=== PATIENT | female | born 1970 | race Caucasian/White ===

== ENCOUNTER 2018-03-25 18:05 | Emergency (ER) | payer OTHER ==
[~2018-03-25] VITALS: Ht 165.1 cm; Wt 111.1 kg
[~2018-03-25 18:05] MED LIST: ACET-8386 PO; ASPI81EC97 PO; METO25TA PO
[2018-03-25 18:08] VITALS: BP 132/84
--- NOTE | 2018-03-25 18:14 | NUR ---
PT TO BED 2 VIA WHEELCHAIR
--- NOTE | 2018-03-25 18:19 | NUR ---
Pt present to ed due to Rt ankle pain sp injury while walking her dog today. Pt states she twisted her ankle. Rt ankle is swollen. Per pt she feels numb on her rt foot; Hx of COPD, CHF. AAO x 4; + pedal pulse. No discoloration or open wound.Denies hitting her when she fell. Cold compress done; Safety measures instituted;Brakes applied; side rails up; Er Md notified.
[2018-03-25] MEDS ORDERED: KETOROLAC 60 MG/2 ML VIAL IM ONE (18:30)
[2018-03-25] MEDS ORDERED: MORPHINE SULFATE 4 MG/ML SYR IM ONE (18:30)
--- NOTE | 2018-03-25 18:37 | NUR ---
x ray at bedside.
--- NOTE | 2018-03-25 18:45 | NUR ---
XRAY AT BEDSIDE
[2018-03-25 19:34] VITALS: BP 142/58
--- NOTE | 2018-03-25 19:34 | NUR ---
Patient discharged with v/s stable. Written and verbal after care instructions given and explained. Patient alert, oriented and verbalized understanding of instructions. Ambulatory with steady gait. All questions addressed prior to discharge. ID band removed. Patient advised to follow up with PMD. Rx of VOLTAREN XR, TRAMADOL given. Patient educated on indication of medication including possible reaction and side effects. Opportunity to ask questions provided and answered.
== END 2018-03-25 19:34 | disposition home or self-care (01) ==
LOC: MED 18:05
DX: S82.831A Other fracture of upper and lower end of right fibula, initial encounter for closed fracture (principal); J44.9 Chronic obstructive pulmonary disease, unspecified; I11.0 Hypertensive heart disease with heart failure; I50.9 Heart failure, unspecified; F12.10 Cannabis abuse, uncomplicated; Z79.899 Other long term (current) drug therapy; Z79.1 Long term (current) use of non-steroidal anti-inflammatories (NSAID); X50.1XXA Overexertion from prolonged static or awkward postures, initial encounter; Y93.K1 Activity, walking an animal; Y92.488 Other paved roadways as the place of occurrence of the external cause; Y99.8 Other external cause status
CPT/HCPCS: 29515; 73610; 73630; 96372; 99284; J1885; J2270; Q0092

== ENCOUNTER 2020-05-05 12:20 | Emergency (ER) | payer SELFPAY ==
[~2020-05-05] VITALS: Ht 165.1 cm; Wt 118.8 kg
[2020-05-05 12:24] VITALS: BP 139/65
--- NOTE | 2020-05-05 12:30 | NUR ---
W/C ASSISTED TO BED 2
--- NOTE | 2020-05-05 12:35 | NUR ---
49 y/o female from home c/o sudden onset chest pain while at work. Pt states 6/10 sharp, pressure pain at this time. States pain does not radiate. Pt c/o left lower extremity swelling with erythema and pain x 2 days. Denies sob. Skin warm, dry, intact. Awake and alert. VSS medhx: COPD, HTN, CHF
--- NOTE | 2020-05-05 12:40 | NUR ---
LAB AT BEDSIDE
--- NOTE | 2020-05-05 12:52 | NUR ---
ULTRASOUND AT BEDSIDE
[2020-05-05 12:54] LABS: BASOPHILS # (AUTO) 0.1 K/uL (0.00-0.22); EOSINOPHILS # (AUTO) 0.2 K/uL (0-0.4); EOSINOPHILS % (AUTO) 2.6 % (0.0-4.0); HEMATOCRIT 41.2 % (36-48); LYMPHOCYTES # (AUTO) 2.5 K/uL (2.5-16.5); LYMPHOCYTES % (AUTO) 33.6 % (20.5-51.1); MEAN CORPUSCULAR HEMOGLOBIN 31 pg (27-31); MEAN CORPUSCULAR HGB CONC 34 g/dL (33-37); MEAN CORPUSCULAR VOLUME 91.1 fL (80-94); MONOCYTES # (AUTO) 0.6 K/uL (0.8-1.0); MONOCYTES % (AUTO) 8.1 % (1.7-9.3); NEUTROPHILS # (AUTO) 4.1 K/uL (1.8-7.7); NEUTROPHILS % (AUTO) 54.7 % (42.2-75.2); PLATELET COUNT (AUTO) 238 K/uL (140-450); RED BLOOD CELL COUNT(AUTO) 4.52 MIL/uL (4.20-5.40); RED CELL DISTRIBUTION WIDTH 13.1 % (11.6-13.7); WHITE BLOOD COUNT (AUTO) 7.4 K/uL (4.8-10.8)
[2020-05-05 13:08] LABS: ALBUMIN 3.9 g/dL (3.4-5.0); ANION GAP 12.1 (8-16); CARBON DIOXIDE 26.6 mmol/L (21-32); POTASSIUM 3.7 mmol/L (3.5-5.1); TOTAL BILIRUBIN 0.4 mg/dL (0.0-1.0)
[2020-05-05] MEDS ORDERED: ASPIRIN 325 MG TAB PO ONE (13:25)
[2020-05-05] MEDS ORDERED: NITROGLYCERIN 0.4 MG TAB SL ONE (13:25)
--- NOTE | 2020-05-05 13:30 | NUR ---
PT RESTING IN POSITION OF COMFORT. 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 RESPIRATIONS EVEN/UNLABORED. BED LOCKED IN LOWEST POSITION, SIDE RAILS X 1, CALL LIGHT IN REACH. ALL PT NEEDS MET AT THIS TIME.
--- NOTE | 2020-05-05 13:40 | NUR ---
PT RESTING ON LEFT SIDE IN POSITION OF COMFORT. 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 PT STATES SHE IS COLD; BLANKETS PROVIDED PER REQUEST. RESPIRATIONS EVEN/UNLABORED. BED LOCKED IN LOWEST POSITION, SIDE RAILS X 1, CALL LIGHT IN REACH. ALL PT NEEDS MET AT THIS TIME.
--- NOTE | 2020-05-05 14:25 | NUR ---
URINE SAMPLE COLLECTED, WALKED TO LAB, HANDED TO [employer] UNMANNED EQUIPMENT OPERATOR.
[2020-05-05] MEDS ORDERED: KETOROLAC 30 MG/ML VIAL IM ONE (14:35)
--- NOTE | 2020-05-05 14:41 | NUR ---
PT RESTING IN POSITION OF COMFORT. TOUR DIRECTOR IN PLACE. RESPIRATIONS EVEN/UNLABORED. BED LOCKED IN LOWEST POSITION, SIDE RAILS X 1, CALL LIGHT IN REACH. ALL PT NEEDS MET AT THIS TIME.
[2020-05-05 14:47] LABS: BARBITURATE, URINE NEGATIVE ng/ml (NEG <=200); BENZODIAZEPINE, URINE NEGATIVE ng/mL (NEG <=200); CANNABINOID, URINE POSITIVE ng/mL (NEG <=50); COCAINE, URINE NEGATIVE ng/mL (NEG <=300)
[2020-05-05 14:48] LABS: OPIATE, URINE NEGATIVE ng/mL (NEG <=2000); PHENCYCLIDINE SCREEN,URINE NEGATIVE ng/mL (NEG <=25)
[2020-05-05] MEDS ORDERED: ASPIRIN 325 MG TAB ONE (15:05)
--- NOTE | 2020-05-05 15:35 | NUR ---
PT RESTING IN POSITION OF COMFORT. 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 RESPIRATIONS EVEN/UNLABORED. BED LOCKED IN LOWEST POSITION, SIDE RAILS X 1, CALL LIGHT IN REACH. ALL PT NEEDS MET AT THIS TIME.
[2020-05-05 15:52] VITALS: BP 109/53
--- NOTE | 2020-05-05 15:52 | NUR ---
Patient discharged with v/s stable. Written and verbal after care instructions given and explained. Patient alert, oriented and verbalized understanding of instructions. Ambulatory with steady gait. All questions addressed prior to discharge. ID band removed. Patient advised to follow up with PMD. Rx of NAPROSYN, KEFLEX given. Patient educated on indication of medication including possible reaction and side effects. Opportunity to ask questions provided and answered.
== END 2020-05-05 15:52 | disposition home or self-care (01) ==
LOC: MED 12:20
DX: R07.89 Other chest pain (principal); L03.116 Cellulitis of left lower limb; F15.10 Other stimulant abuse, uncomplicated; I11.0 Hypertensive heart disease with heart failure; J44.9 Chronic obstructive pulmonary disease, unspecified; F17.210 Nicotine dependence, cigarettes, uncomplicated; Z86.73 Personal history of transient ischemic attack (TIA), and cerebral infarction without residual deficits
CPT/HCPCS: 36415; 71045; 80053; 80305; 84484; 85025; 93005; 93971; 96372; 99285; G0482; J1885

== ENCOUNTER 2021-10-26 02:00 | Emergency (ER) | payer SELFPAY ==
[~2021-10-26] VITALS: Ht 165.1 cm; Wt 113.4 kg
[2021-10-26 02:12] VITALS: BP 123/90
--- NOTE | 2021-10-26 02:50 | NUR ---
Blood for labwork drawn from right arm per insurance plan specialist. Patient tolerated well.
[2021-10-26 03:00] LABS: BASOPHILS % (AUTO) 0.4 % (0.0-2.0); EOSINOPHILS # (AUTO) 0.1 K/uL (0-0.4); EOSINOPHILS % (AUTO) 1.2 % (0.0-4.0); HEMATOCRIT 46.6 % (36-48); HEMOGLOBIN 15.7 g/dL (12.0-16.0); LYMPHOCYTES # (AUTO) 2.7 K/uL (2.5-16.5); LYMPHOCYTES % (AUTO) 24.7 % (20.5-51.1); MEAN CORPUSCULAR HEMOGLOBIN 31 pg (27-31); MEAN CORPUSCULAR HGB CONC 34 g/dL (33-37); MONOCYTES % (AUTO) 8.8 % (1.7-9.3); NEUTROPHILS % (AUTO) 64.9 % (42.2-75.2); PLATELET COUNT (AUTO) 271 K/uL (140-450); RED BLOOD CELL COUNT(AUTO) 5.11 MIL/uL (4.20-5.40); RED CELL DISTRIBUTION WIDTH 13.8 % (11.6-13.7); WHITE BLOOD COUNT (AUTO) 10.8 K/uL (4.8-10.8)
[2021-10-26 03:01] LABS: APPEARANCE,URINE CLEAR (CLEAR); BILIRUBIN,URINE NEGATIVE (NEGATIVE); BLOOD, URINE TRACE-I (NEGATIVE); COLOR,URINE YELLOW (YELLOW); LEUKOCYTE ESTERASE ,URINE NEGATIVE (NEGATIVE); NITRITE, URINE NEGATIVE (NEGATIVE); UGLUCOSE NEGATIVE (NEGATIVE)
--- NOTE | 2021-10-26 03:04 | NUR ---
Kristen dennis in [facility] - 10/26/21 at 0304 by PHYLLIS PT TAKEN TO RADIOLOGY
--- NOTE | 2021-10-26 03:04 | NUR ---
Patient taken to X-ray via WC
--- NOTE | 2021-10-26 03:09 | NUR ---
PT RETURN FROM [facility] TO [facility]
[2021-10-26 03:10] LABS: RBC,URINE 0-5 /HPF (0-5)
[2021-10-26 03:15] LABS: ALBUMIN 3.8 g/dL (3.4-5.0); ANION GAP 13.2 (8-16); CARBON DIOXIDE 29.4 mmol/L (21-32); CREATININE 1.3 mg/dL (0.6-1.3); POTASSIUM 5.6 mmol/L (3.5-5.1); TOTAL BILIRUBIN 0.2 mg/dL (0.0-1.0)
--- NOTE | 2021-10-26 04:20 | NUR ---
pt to bed 08 ambulatory
--- NOTE | 2021-10-26 04:21 | NUR ---
Kristen dennis in [facility] - 10/26/21 at 0421 by PHYLLIS PT TAKEN TO BED 8
--- NOTE | 2021-10-26 04:27 | NUR ---
50 yo f bib self with c/c of 6/10 left side pain x1day. reports n/v/d. denies taking medication for pain. abd is soft and round. bowel sounds active b1ivuli. hx:copd, chf nka
--- NOTE | 2021-10-26 04:39 | NUR ---
Dr. Vicente examining patient.
[2021-10-26] MEDS ORDERED: NACL 0.9% 1,000 ML IV ONE (04:45)
[2021-10-26] MEDS ORDERED: KETOROLAC 30 MG/ML VIAL IVP ONE (04:45)
[2021-10-26] MEDS ORDERED: ONDANSETRON 4 MG/2 ML VIAL IVP ONE (04:45)
--- NOTE | 2021-10-26 05:00 | NUR ---
PT TAKEN TO CT
--- NOTE | 2021-10-26 05:04 | NUR ---
blood cultures collected and given to padmini from lab.
--- NOTE | 2021-10-26 05:11 | NUR ---
PT RETURN FROM CT
[2021-10-26] MEDS ORDERED: cefTRIAXone 1,000 MG VIAL ONE (05:21)
--- NOTE | 2021-10-26 05:51 | NUR ---
rt ac infiltrated. iv has been d/c. new iv to left hand 22g estab, fluids continued.
[2021-10-26] MEDS ORDERED: CALCIUM GLUC 1 GM/50 mL NS BAG 50 ML IV ONE (06:40)
[2021-10-26] MEDS ORDERED: FUROSEMIDE 40 MG/4 ML VIAL IVP ONE (06:40)
[2021-10-26] MEDS ORDERED: INSULIN REGULAR, HUMAN 100 UNIT/ML VIAL IV ONE (06:40)
[2021-10-26] MEDS ORDERED: DEXTROSE 25% 10 ML SYR IVP ONE (06:40)
[2021-10-26] MEDS ORDERED: DEXTROSE 50% 50 ML SYR IVP ONE ×2 (06:53→06:55)
--- NOTE | 2021-10-26 07:25 | NUR ---
Pt report given to elsie dowling. Transfer of care at this time.
--- NOTE | 2021-10-26 07:25 | NUR ---
pt medicated per flaquita butts's order. pt ambulated to with steady gait.
[2021-10-26] MEDS ORDERED: ONDA-188 PO ×2 (07:57→15:13)
[2021-10-26] MEDS ORDERED: CEPH-588 PO ×2 (07:57→15:13)
[2021-10-26] MEDS ORDERED: ACET-8386 PO ×2 (07:57→15:13)
[2021-10-26 08:06] VITALS: BP 114/58
--- NOTE | 2021-10-26 08:06 | NUR ---
Patient discharged with v/s stable. Written and verbal after care instructions about pyelonephritis given and explained. Patient alert, oriented and verbalized understanding of instructions. Ambulatory with steady gait. All questions addressed prior to discharge. ID band removed. Patient advised to follow up with PMD. Rx of keflex, norco 5-325, zofran odt given. Patient educated on indication of medication including possible reaction and side effects. Opportunity to ask questions provided and answered.
== END 2021-10-26 08:06 | disposition home or self-care (01) ==
LOC: MED 02:00
DX: N12 Tubulo-interstitial nephritis, not specified as acute or chronic (principal); J44.9 Chronic obstructive pulmonary disease, unspecified; I11.0 Hypertensive heart disease with heart failure; I50.9 Heart failure, unspecified; Z86.73 Personal history of transient ischemic attack (TIA), and cerebral infarction without residual deficits; Z98.890 Other specified postprocedural states; Z79.899 Other long term (current) drug therapy; Z79.82 Long term (current) use of aspirin
CPT/HCPCS: 36415; 71045; 74176; 80053; 81001; 81025; 83605; 83690; 84484; 85025; 85379; 87040; 87086; 93005; 96361; 96365; 96375; 99285; J0610; J0696; J1815; J1885; J1940; J2405; J7030